=== PATIENT | male | born 1975 | race Caucasian/White ===

== ENCOUNTER → 2021-11-09 | Outpatient (CLI) | payer BC, OTHER ==
--- NOTE | 2021-11-10 12:06 | CT ---
EXAMINATION TYPE: CT soft tissue neck wo con DATE OF EXAM: 11/09/2021 HISTORY: Right sided neck mass, trouble swallowing COMPARISON: None CT DLP: 440.4 mGycm. Automated Exposure Control for Dose Reduction was Utilized. TECHNIQUE: CT scan of the neck is performed without contrast, coronal and sagittal reformatted image s are reviewed. FINDINGS: Lack of contrast significantly limits the exam. There is multilevel severe degenerative disc disease and facet arthropathy. Lung apices are clear. Ex am also limited by motion artifact. Grossly the thyroid is homogeneous in attenuation. There is marked asymmetry at the level of the right posterior lateral hypopharynx extending to the le [place]zzie just above the vocal cord measuring a thickness of 1.8 cm. Additionally, in the right carotid spa ce there is a large soft tissue mass measuring 3 cm suspicious for adenopathy. Suspect additional sof t tissue nodule inferiorly measuring 2.5 cm compatible with additional mass, adenopathy Surgical clips metallic densities seen on the right. Submandibular glands have a normal appearance. P arotid glands have a normal appearance. Nasopharynx is symmetric. Orbits are symmetric. Visualized intracranial structures are symmetric. IMPRESSION: 1. Markedly limited exam due to motion and lack of IV contrast demonstrates a large soft tissue collin s in the right neck as measured above most likely in the basis of pathologic adenopathy. There also i s marked asymmetry of the right hypopharynx posterior laterally extending to the level of just above the vocal cords highly suspicious for neoplastic process. Direct visualization and ENT consultation s uggested and PET/CT recommended.
== END | disposition home or self-care (01) ==
LOC: RADCTMAIN 18:53
PROVIDERS: ATTEND Family Medicine
DX: R22.1 Localized swelling, mass and lump, neck (principal); R13.10 Dysphagia, unspecified
CPT/HCPCS: 70490

== ENCOUNTER 2022-07-26 10:08 | Day surgery (SDC) | payer BC, OTHER ==
[2022-07-26 11:13] VITALS: BP 123/80; PULSE 109; RESP 16; TEMP 99
[2022-07-26 11:19] LABS: Basophils % (A) 0 %; Eosinophils # (A) 0.1 k/uL (0-0.7); Eosinophils % (A) 2 %; HGB 12.8 gm/dL (13.0-17.5); Lymphocytes # (A) 0.5 k/uL (1.0-4.8); Lymphocytes % (A) 9 %; MCH 30.5 pg (25.0-35.0); MCHC 34.6 g/dL (31.0-37.0); MCV 88.1 fL (80.0-100.0); Mean Platelet Volume 7.7; Monocytes # (A) 0.3 k/uL (0-1.0); Monocytes % (A) 5 %; Neutrophils # (A) 4.6 k/uL (1.3-7.7); Neutrophils % (A) 83 %; Platelet Count 219 k/uL (150-450); RDW 12.1 % (11.5-15.5); WBC 5.5 k/uL (3.8-10.6)
[2022-07-26 11:53] LABS: African American GFR (CKD) >90 (>60 ml/min/1.73 sqM); Anion Gap 8 mmol/L; Blood Urea Nitrogen 21 mg/dL (9-20); Calcium 9.7 mg/dL (8.4-10.2); Carbon Dioxide 32 mmol/L (22-30); Chloride 97 mmol/L (98-107); Glucose 168 mg/dL (74-99); Non-African American GFR(CKD) >90 (>60 ml/min/1.73 sqM); Potassium 3.3 mmol/L (3.5-5.1); Sodium 137 mmol/L (137-145)
[2022-07-26] MEDS ORDERED: LIDOCAINE 1% INJ 10MG/ML (30 ML VIAL-PF) SQ ONE ×2 (12:30)
--- NOTE | 2022-07-26 12:57 | IR ---
PICC LINE PLACEMENT: HISTORY: Infection requiring long-term antibiotic therapy PROCEDURE: Ultrasound and fluoroscopic guidance of PICC line placement. COMPLICATIONS: None ANESTHESIA: 1. 1% Lidocaine locally. FINDINGS/TECHNIQUE: The procedure was explained to the patient. The risks, complications, benefits and alternatives were discussed and any questions were answered. Informed consent was obtained. The patient was placed supine on the fluoroscopic table and prepped and draped in the usual sterile fash ion. Utilizing a 21 gauge needle and sonographic and fluoroscopic guidance, access in the left basi lic vein was achieved and there is placement of a 0.018 guidewire. The vein is patent. A 4-F sheath was placed over the guidewire. The guidewire and dilator were removed and a 4-F. PICC line was plac ed through the sheath with the tip at the level of the SVC. The sheath was removed, the catheter was flushed and sutured into position. The patient was stable throughout the procedure and remained sta ble upon discharge from the Department of Radiology. The vein puncture was patent under ultrasound. A ashley scale image was obtained to document patency of the vein punctured. All elements of the maximal barrier technique were utilized. FLUOROSCOPY TIME: 0.2 minutes and 1 images submitted IMPRESSION: Successful PICC line placement under ultrasound and fluoroscopic guidance.
== END 2022-07-26 13:01 | disposition home or self-care (01) ==
LOC: CATHCVL 10:08
PROVIDERS: ATTEND Radiology Diagnostic Radiology
DX: C76.0 Malignant neoplasm of head, face and neck (principal); Z45.2 Encounter for adjustment and management of vascular access device; Z80.3 Family history of malignant neoplasm of breast; Z80.1 Family history of malignant neoplasm of trachea, bronchus and lung
CPT/HCPCS: 36573; 80048; 85025; C1751; C1769; J2001